=== PATIENT | female | born 1955 | race Caucasian/White ===

== ENCOUNTER 2020-06-02 12:23 | Emergency (ER) | payer BC ==
[2020-06-02 14:02] LABS: #Eosinphils 0.2 10x3/uL (0.0-0.5); #Monocytes 0.5 10x3/uL (0.0-1.1); #Neutrophils 4.6 10x3/uL (1.5-8.4); %Basophils 0.4 % (0.0-2.0); %Eosinophils 3.6 % (0.0-6.0); %Lymphocytes 19.2 % (18.0-47.0); %Monocytes 7.6 % (0.0-10.0); %Neutrophils 68.6 % (40.0-75.0); Hemoglobin 9.7 g/dL (12.0-15.5); Mean Corpuscular Hemoglobin 17.7 pg (27.0-33.0); Mean Corpuscular Volume 63.2 fl (81.6-98.3); Mean Platelet Volume 9.1 fl (7.4-10.4); Platelet Count 365 10x3/uL (150-450); RBC Distribution Width 21.9 % (11.5-14.5); Red Blood Cell (RBC) Count 5.49 10x6/uL (3.90-5.03); White Blood Cell (WBC) Count 6.7 10x3/uL (3.5-10.5)
[2020-06-02 14:19] LABS: ALT (SGPT) 33 U/L (8-55); AST (SGOT) 57 U/L (5-34); Albumin 4.5 g/dL (3.4-4.8); Alkaline Phosphatase 106 U/L (40-110); Anion Gap 15 mmol/L (10-20); BUN (Urea Nitrogen) 10 mg/dL (9.8-20.1); Bilirubin, Total 0.8 mg/dL (0.2-1.2); Calc. Creatinine Clearance 0 mL/min (70-130); Calcium 9.7 mg/dL (7.8-10.44); Carbon Dioxide 25 mmol/L (23-31); Chloride 106 mmol/L (98-107); Globulin 3.2 g/dL (2.4-3.5); Glucose 118 mg/dL (80-115); Protein, Total 7.7 g/dL (5.8-8.1); Sodium 142 mmol/L (136-145)
[2020-06-02 15:08] LABS: Anisocytosis SLIGHT = 6-15 cells (100X) (0-5/hpf); Basophilic Stippling SLIGHT = 1-2 cells (100X) (None Seen); Hypochromia MODERATE=16-30 cells (100X) (0-5/hpf); Microcytosis MODERATE=15-30 cells (100X) (0-5/hpf); Reflex for Review?? YES; Stomatocytes SLIGHT = 2-5 cells (100X) (0-1/hpf)
[2020-06-02 15:09] LABS: Elliptocytes SLIGHT = 2-5 cells (100X) (0-1/hpf); Platelet Morphology Comment Appears Adequate
[2020-06-02] MEDS ORDERED: Fentanyl 100 MCG/2 ML VIAL ONE (15:40)
[2020-06-02] MEDS ORDERED: PROPOFOL 20 ML ONE (15:40)
[2020-06-02] MEDS ORDERED: Lidocaine 1% PF 5 ML VIAL ONE (15:44)
[2020-06-02] MEDS ORDERED: Succinylcholine 200 MG/10 ml SYRINGE FS ONE (15:44)
[2020-06-02] MEDS ORDERED: Metoclopramide HCl 10 MG/2 ML VIAL ONE (16:52)
[2020-06-02] MEDS ORDERED: Ondansetron PF 4 MG/2 ML Vial ONE (16:52)
== END 2020-06-02 16:20 | disposition admitted as inpatient to this hospital (09) ==
LOC: CSHERS 12:23
PROC: 0DC58ZZ Extirpation of Matter from Esophagus, Via Natural or Artificial Opening Endoscopic (ICD-10-PCS; principal; 2020-06-02)
PROC: 0DB68ZX Excision of Stomach, Via Natural or Artificial Opening Endoscopic, Diagnostic (ICD-10-PCS; 2020-06-02)
DX: T18.128A Food in esophagus causing other injury, initial encounter (principal); E11.9 Type 2 diabetes mellitus without complications; I10 Essential (primary) hypertension; E78.5 Hyperlipidemia, unspecified; K21.9 Gastro-esophageal reflux disease without esophagitis; Z79.51 Long term (current) use of inhaled steroids; Z79.82 Long term (current) use of aspirin; Z79.899 Other long term (current) drug therapy; K22.2 Esophageal obstruction; K44.9 Diaphragmatic hernia without obstruction or gangrene; K31.7 Polyp of stomach and duodenum
CPT/HCPCS: 71045; 80053; 85025; 85060; 88305; 96361; 96374; J1610; J2405; J2704; J2765; J3010

== ENCOUNTER 2020-07-18 05:52 | Day surgery (SDC) | payer BC ==
[2020-07-18 06:47] VITALS: BMI 36.6
[2020-07-18] MEDS ORDERED: PROPOFOL 40 ML ONE (07:03)
[2020-07-18] MEDS ORDERED: Lidocaine 1% PF 5 ML VIAL ONE (07:03)
[2020-07-18] MEDS ORDERED: Lidocaine 1% MPF 2 ML VIAL ONE (07:09)
[2020-07-18] MEDS ORDERED: PROPOFOL 20 ML ONE ×3 (08:22→08:52)
== END 2020-07-18 09:55 | disposition home or self-care (01) ==
LOC: CSHSDC 05:52
PROVIDERS: ATTEND Internal Medicine Gastroenterology
PROC: 0DJD8ZZ Inspection of Lower Intestinal Tract, Via Natural or Artificial Opening Endoscopic (ICD-10-PCS; principal; 2020-07-18)
PROC: 0D758ZZ Dilation of Esophagus, Via Natural or Artificial Opening Endoscopic (ICD-10-PCS; principal; 2020-07-18)
DX: Z12.11 Encounter for screening for malignant neoplasm of colon (principal); K22.2 Esophageal obstruction; K31.7 Polyp of stomach and duodenum; K57.30 Diverticulosis of large intestine without perforation or abscess without bleeding; K64.9 Unspecified hemorrhoids; Z80.0 Family history of malignant neoplasm of digestive organs; K44.9 Diaphragmatic hernia without obstruction or gangrene
CPT/HCPCS: 36416; 88305; J2704